=== PATIENT | female | born 1980 | race Caucasian/White ===

== ENCOUNTER 2018-03-11 17:54 | Emergency (ER) | payer OTHER, MEDICAID ==
[~2018-03-11] VITALS: Ht 165.1 cm; Wt 116.1 kg
[~2018-03-11 17:54] MED LIST: HYDROCODONE-AP1 EAC6 PO
[2018-03-11] MEDS ORDERED: KEPPRA 500 MG500 M1 PO (18:05)
[2018-03-11] MEDS ORDERED: VISTARIL 25 MG25 M1 PO (18:25)
[2018-03-11 18:34] VITALS: BP 144/74
== END 2018-03-11 18:35 | disposition home or self-care (01) ==
LOC: M.ERS 17:54
DX: F41.9 Anxiety disorder, unspecified (principal); F32.9 Major depressive disorder, single episode, unspecified; F90.9 Attention-deficit hyperactivity disorder, unspecified type

== ENCOUNTER 2018-04-25 18:35 | Emergency (ER) | payer OTHER, MEDICAID ==
[~2018-04-25] VITALS: Ht 165.1 cm; Wt 133.8 kg
[~2018-04-25 18:35] MED LIST changes: +KEPPRA 500 MG500 M1 PO; +VISTARIL 25 MG25 M1 PO
[2018-04-25 20:18] LABS: ABSOLUTE BASOPHILS 0.1 thou/uL (0.0-0.2); ABSOLUTE EOSINOPHILS 0.3 thou/uL (0.0-0.7); ABSOLUTE MONOCYTES 0.5 thou/uL (0.0-1.2); ABSOLUTE NEUTROPHILS 7.1 thou/uL (1.6-8.1); BASOPHILS 0.5 %; EOSINOPHILS 3.4 %; HEMATOCRIT 41.7 % (37.0-47.0); HEMOGLOBIN 13.5 gm/dL (12.0-15.0); LYMPHOCYTES 20.3 %; MCH 23.8 pg (26.0-34.0); MCHC 32.3 g/dL (28.0-37.0); MCV 73.7 fL (80.0-100.0); MONOCYTES 5.3 %; MPV 7.7 fl. (7.2-11.1); NUCLEATED RBCS 0 /100WBC; PLATELET COUNT* 414 thou/uL (150-400); POLYS 70.5 %; RBC 5.66 mil/uL (4.20-5.00); RDW-CV 15.9 % (10.5-14.5); WBC 10.1 thou/uL (4.0-11.0)
[2018-04-25 20:29] LABS: URINE BILIRUBIN NEGATIVE (Negative); URINE BLOOD NEGATIVE (Negative); URINE CLARITY CLEAR; URINE COLOR YELLOW; URINE GLUCOSE-RANDOM NEGATIVE (Negative); URINE KETONES NEGATIVE (Negative); URINE LEUKOCYTES-REFLEX NEGATIVE (Negative); URINE NITRITE-REFLEX NEGATIVE (Negative); URINE PROTEIN NEGATIVE (Negative); URINE UROBILINOGEN 0.2 E.U./dl (0.2-1.0)
[2018-04-25 20:32] LABS: CALCIUM 8.9 mg/dL (8.5-10.1); POTASSIUM 3.8 mmol/L (3.5-5.1)
[2018-04-25 20:37] LABS: ALBUMIN 3.4 g/dL (3.4-5.0); TOTAL BILIRUBIN 0.2 mg/dL (<0.1-1.0); TOTAL PROTEIN 7.6 g/dL (6.4-8.2)
[2018-04-25 20:46] LABS: AMP/METHAMP POSITIVE (Negative); BARBITURATES Negative (Negative); BENZODIAZEPINES Negative (Negative); METHADONE Negative (Negative); OPIATES Negative (Negative); PCP Negative (Negative); THC Negative (Negative)
[2018-04-25 20:57] LABS: COCAINE Negative (Negative)
[2018-04-25 21:22] VITALS: BP 102/66
== END 2018-04-25 21:23 | disposition home or self-care (01) ==
LOC: M.ERS 18:35
PROVIDERS: Nurse Practitioner Family
DX: G40.909 Epilepsy, unspecified, not intractable, without status epilepticus (principal); F41.9 Anxiety disorder, unspecified; F32.9 Major depressive disorder, single episode, unspecified; F90.9 Attention-deficit hyperactivity disorder, unspecified type

== ENCOUNTER 2018-12-11 16:31 | Emergency (ER) | payer OTHER ==
[~2018-12-11] VITALS: Ht 167.6 cm; Wt 90.7 kg
[2018-12-11] MEDS ORDERED: ADDERALL 15 MG15 MG PO (16:43)
[2018-12-11] MEDS ORDERED: VISTARIL 25 MG25 M1 PO (17:11)
[2018-12-11 17:33] VITALS: BP 150/88
== END 2018-12-11 17:34 | disposition home or self-care (01) ==
LOC: M.ERS 16:31
DX: F41.9 Anxiety disorder, unspecified (principal); F32.9 Major depressive disorder, single episode, unspecified; F90.9 Attention-deficit hyperactivity disorder, unspecified type; Z90.89 Acquired absence of other organs